=== PATIENT | male | born 1965 | race Native Hawaiian/Other Pacific Islander ===

== ENCOUNTER 2019-01-12 19:32 | Inpatient (IN) | payer BC ==
--- NOTE | 2019-01-12 19:36 | C.PDOC ---
History Of Present Illness 53 year old male is a code heart transfer from [facility]. Patient was admitted yesterday from chest pain, while on Telemetry floor yesterday patient started c/o chest pain. EKG done showed infralateral NC. Code heart was called and labs done at 13:00 showed positive Troponin. Patient received plavix, aspirin, IV heparin, betta blcokers. En route to the ED patient started c/o chest pain again, EMS gave another SL nitro with partial relief of symptoms. Time Seen by Provider: 01/12/19 19:35 Chief Complaint (Nursing): Chest Pain History Per: Patient, EMS History/Exam Limitations: no limitations Onset/Duration Of Symptoms: Days Current Symptoms Are (Timing): Still Present Pain Scale Rating Of: 4 Quality: "Pain" Nitro Therapy Administered: 1, Per EMS, Partial Relief Recent travel outside of the [place]: No Additional History Per: Patient Past Medical History Reviewed: Historical Data, Nursing Documentation, Vital Signs - Medical History PMH: No Chronic Diseases Denies: Chronic Kidney Disease Surgical History: No Surg Hx Family History: States: Unknown Family Hx - Social History Hx Alcohol Use: No Hx Substance Use: No Review Of Systems Constitutional: Negative for: Fever, Chills Cardiovascular: Positive for: Chest Pain. Negative for: Palpitations Respiratory: Negative for: Cough, Shortness of Breath Gastrointestinal: Negative for: Nausea, Vomiting, Abdominal Pain Skin: Negative for: Rash Neurological: Negative for: Weakness, Numbness, Headache, Dizziness Physical Exam - Physical Exam Appears: Non-toxic, No Acute Distress Skin: Warm, Dry Head: Normacephalic Eye(s): bilateral: Normal Inspection Neck: Supple Chest: Symmetrical Cardiovascular: Rhythm Regular Respiratory: No Rales, No Rhonchi, No Wheezing Gastrointestinal/Abdominal: Soft, No Tenderness, No Guarding, No Rebound Extremity: Bilateral: Atraumatic, Normal Color And Temperature, Normal ROM Neurological/Psych: Oriented x3, Normal Speech, Normal Cognition Gait: Unable To Assess ED Course And Treatment ECG: Interpreted By Me, Viewed By Me ECG Rhythm: Sinus Rhythm (74), ST/T Changes (lvh, poss early iwmi) Pulse Ox Interpretation: Normal Progress Note: Awaiting catheterization laboratory technician team and repeat EKG Disposition Discussed With : Mahamed Poole Doctor Will See Patient In The: ED Counseled Patient/Family Regarding: Studies Performed, Diagnosis - Disposition Disposition: HOSPITALIZED Disposition Time: 19:36 Condition: GUARDED Forms: [employer] ([place]) - Clinical Impression Clinical Impression: Chest pain, Myocardial infarction, inferior wall - Scribe Statement The provider has reviewed the documentation as recorded by the Scribe Armando Ellis All medical record entries made by the Scribe were at my direction and personally dictated by me. I have reviewed the chart and agree that the record accurately reflects my personal performance of the history, physical exam, medical decision making, and the department course for this patient. I have also personally directed, reviewed, and agree with the discharge instructions and disposition. Decision To Admit - Pt Status Changed To: Hospital Disposition Of: Inpatient - Admit Certification Admit to Inpatient:: After my assessment, the patient will require hospitalization for at least two midnights. This is because of the severity of symptoms shown, intensity of services needed, and/or the medical risk in this patient being treated as an outpatient. - InPatient: Physician Admission Certification: I certify that this patient requires 2 or more midnights of care for the following reason:: After my assessment, the patient will require hospitalization for at least two midnights. This is because of the severity of symptoms shown, intensity of services needed, and/or the medical risk in this patient being treated as an outpatient. - . Bed Request Type: ICU Admitting Physician: Mahamed Poole Patient Diagnosis: Chest pain, Myocardial infarction, inferior wall
[2019-01-12] MEDS ORDERED: Lidocaine 2% MPF (5 ml) Inj ONE ×2 (20:04→20:51)
[2019-01-12] MEDS ORDERED: Midazolam 2 MG/2 ML VIAL ONE ×2 (20:08→20:35)
[2019-01-12] MEDS ORDERED: Eptifibatide 20 mg/10mL Inj IVP ONE (20:19)
[2019-01-12] MEDS ORDERED: Eptifibatide 0.75 mg/ml 75 MG/100 ML BOTTLE IV ONE (20:30)
[2019-01-12] MEDS ORDERED: Nitroglycerin 50mg in D5W 50 MG/250 ML BOTTLE IV ONE (20:51)
[2019-01-12] MEDS ORDERED: Sodium Chloride 0.45% 1,000 ML IV SCH (21:15)
[2019-01-12] MEDS ORDERED: Nitroglycerin 50mg in D5W 50 MG/250 ML BOTTLE IV SCH (21:15)
[2019-01-12] MEDS ORDERED: Eptifibatide 0.75 mg/ml 75 MG/100 ML BOTTLE IV SCH (21:15)
--- NOTE | 2019-01-12 21:22 | CP.PCM.HP ---
History of Present Illness - History of Present Illness History of Present Illness: 53 year old male is a code heart transfer from [facility]. Patient was admitted yesterday from chest pain, while on Telemetry floor yesterday patient started c/o chest pain. EKG done showed infralateral VT. Code heart was called a nd labs done at 13:00 showed positive Troponin. Patient received plavix, aspirin, IV heparin, betta blcokers. En route to the ED patient started c/o chest pain again, EMS gave another SL nitro with partial relief of symptoms. Time Seen by Provider: 01/12/19 19:35 Chief Complaint (Nursing): Chest Pain History Per: Patient, EMS History/Exam Limitations: no limitations Onset/Duration Of Symptoms: Days Current Symptoms Are (Timing): Still Present Pain Scale Rating Of: 4 Quality: "Pain" Nitro Therapy Administered: 1, Per EMS, Partial Relief Recent travel outside of the [place]: No Additional History Per: Patient Past Medical History Reviewed: Historical Data, Nursing Documentation, Vital Signs - Medical History PMH: No Chronic Diseases Denies: Chronic Kidney Disease Surgical History: No Surg Hx Family History: States: Unknown Family Hx - Social History Hx Alcohol Use: No Hx Substance Use: No Review Of Systems Constitutional: Negative for: Fever, Chills Cardiovascular: Positive for: Chest Pain. Negative for: Palpitations Respiratory: Negative for: Cough, Shortness of Breath Gastrointestinal: Negative for: Nausea, Vomiting, Abdominal Pain Skin: Negative for: Rash Neurological: Negative for: Weakness, Numbness, Headache, Dizziness Physical Exam - Physical Exam Appears: Non-toxic, No Acute Distress Skin: Warm, Dry Head: Normacephalic Eye(s): bilateral: Normal Inspection Neck: Supple Chest: Symmetrical Cardiovascular: Rhythm Regular Respiratory: No Rales, No Rhonchi, No Wheezing Gastrointestinal/Abdominal: Soft, No Tenderness, No Guarding, No Rebound Extremity: Bilateral: Atraumatic, Normal Color And Temperature, Normal ROM Neurological/Psych: Oriented x3, Normal Speech, Normal Cognition Gait: Unable To Assess Assessment and Plan 53 M with hx of HTN and strong F hx of [place] transferred from [facility] for acute Inferior STEMI Patient was loaded with ASA 325, Plavix 600 and IV Heparin and brought to Head Neck Surgeon After informed consent Emergency cardiac cath and RCA intervention with MOMO performed Patient was hypertensive and started on IV Nitro Cath: 1. L Main: Patent 2. LAD/Diag: Proximal to mid 80-85% stenosis. Small D1 90% 3. L Cx: Patent 4. RCA: Dominant. Large PDA 99% occluded 5. LV: EF 40%, Inferior and apical hypokisis, EDP 20 Successful intervention of RCA/PDA with MOMO Staged PCI of LAD after 1 month Integrilin for 12 hrs IVF for 12 hrs D/C Heparin drip Lovenox 40sc, ASA 81, Plavix 75, Protonix 40 po daily Crestor 40QHS Check all the labs Bed rest till 1am (4hrs). can ambulate after ECHO, EKG Plan d/w Resident Present on Admission - Present on Admission Any Indicators Present on Admission: Yes Review of Systems - EENT Eyes: As Per HPI Past Patient History - Past Medical History & Family History Past Medical History?: Yes - Past Social History Smoking Status: Never Smoked - CARDIAC Hx Cardiac Disorders: No - PULMONARY Hx Respiratory Disorders: No - NEUROLOGICAL Hx Neurological Disorder: No - HEENT Hx HEENT Problems: No - RENAL Hx Chronic Kidney Disease: No - ENDOCRINE/METABOLIC Hx Endocrine Disorders: No - HEMATOLOGICAL/ONCOLOGICAL Hx Blood Disorders: No - INTEGUMENTARY Hx Dermatological Problems: No - MUSCULOSKELETAL/RHEUMATOLOGICAL Hx Musculoskeletal Disorders: No - GENITOURINARY/GYNECOLOGICAL Hx Genitourinary Disorders: No - PSYCHIATRIC Hx Substance Use: No Meds Allergies/Adverse Reactions: Allergies Allergy/AdvReac Type Severity Reaction Status Date / Time No Known Allergies Allergy Verified 01/12/19 05:35 Physical Exam - Head Exam Head Exam: ATRAUMATIC Results - Vital Signs Recent Vital Signs: Last Vital Signs Temp 97.5 F L 01/12/19 19:51 Pulse 75 01/12/19 19:35 Resp 16 01/12/19 19:35 BP 157/105 H 01/12/19 19:35 Pulse Ox 97 01/12/19 19:35 - Labs Result Diagrams: 01/13/19 06:23 01/13/19 06:24 Assessment & Plan - Date & Time Date: 01/12/19 Time: 19:45
--- NOTE | 2019-01-12 22:14 | CP.PCM.CON ---
History of Present Illness - History of Present Illness History of Present Illness: 53 M with hx of HTN and strong family hx of [place] transferred from [facility] for acute Inferior STEMI Patient was admitted at [facility] with chest pressure that woke him up at about 4:00am this morning.He 1st experienced chest pressure while exercising on Monday which resolved with rest.Similar episode on monday.chest pain was associated with nausea,dizziness and fatigue. At [facility] the Initial troponin and EKG were normal.Repeat troponin was elevated with inferolateral changes on EKG. Code heart initiated and Emergency cardiac cath done at [facility] Patient was hypertensive and started on IV Nitro Cardiac Cath revealed: 1. L Main: Patent 2. LAD/Diag: Proximal to mid 80-85% stenosis. Small D1 90% 3. L Cx: Patent 4. RCA: Dominant. Large PDA 99% occluded 5. LV: EF 40%, Inferior and apical hypokisis, EDP 20 Successful intervention of RCA/PDA with MOMO Staged PCI of LAD after 1 month patient denies chest pressure but c/o mild left chest soreness .no dizziness,nausea Review of Systems - Constitutional Constitutional: absent: Anorexia, Headache, Weakness - EENT Eyes: absent: Blurred Vision Ears: absent: Ear Pain, Dizziness Nose/Mouth/Throat: absent: Hoarsness, Sore Throat - Cardiovascular Cardiovascular: Other (c/o left sided soreness). absent: Dyspnea, Palpitations, Pedal Edema - Respiratory Respiratory: absent: Cough, Dyspnea, Hemoptysis - Gastrointestinal Gastrointestinal: absent: Abdominal Pain, Nausea, Vomiting - Genitourinary Genitourinary: absent: Dysuria - Endocrine Endocrine: absent: Fatigue - Hematologic/Lymphatic Hematologic: absent: Easy Bleeding Past Patient History - Past Social History Smoking Status: Never Smoked Alcohol: Social Drugs: Denies Home Situation {Lives}: With Family - CARDIAC Hx Cardiac Disorders: Yes Hx Hypercholesterolemia: Yes (borderline abnormal not on meds) Hx Hypertension: Yes (borderline elevated BP not on meds) - PULMONARY Hx Respiratory Disorders: No - NEUROLOGICAL Hx Neurological Disorder: No - HEENT Hx HEENT Problems: No - RENAL Hx Chronic Kidney Disease: No - ENDOCRINE/METABOLIC Hx Endocrine Disorders: No - HEMATOLOGICAL/ONCOLOGICAL Hx Blood Disorders: No - INTEGUMENTARY Hx Dermatological Problems: No - MUSCULOSKELETAL/RHEUMATOLOGICAL Hx Musculoskeletal Disorders: No - GENITOURINARY/GYNECOLOGICAL Hx Genitourinary Disorders: No - PSYCHIATRIC Hx Substance Use: No Meds Allergies/Adverse Reactions: Allergies Allergy/AdvReac Type Severity Reaction Status Date / Time No Known Allergies Allergy Verified 01/12/19 05:35 - Medications Medications: Current Medications Aspirin (Aspirin Chewable) 81 mg PO DAILY [facility] Clopidogrel Bisulfate (Plavix) 75 mg PO DAILY [facility] Enoxaparin Sodium (Lovenox) 40 mg SC DAILY [facility] Sodium Chloride (Sodium Chloride 0.45%) 1,000 mls @ 70 mls/hr IV .[id number] [facility] Last Admin: 01/12/19 21:51 Dose: 70 mls/hr Eptifibatide (Integrilin) 75 mg in 100 mls @ 14.5 mls/hr IV .[id number] [facility] Stop: 01/13/19 09:00 Last Admin: 01/12/19 21:00 Dose: 14.5 mls/hr Nitroglycerin/Dextrose (Nitroglycerin 50 Mg/250 Ml D5w) 50 mg in 250 mls @ 9 mls/hr IV .Q24H [facility]; Protocol Last Titration: 01/12/19 21:30 Dose: 20 mcg/min, 6 mls/hr Losartan Potassium (Cozaar) 25 mg PO DAILY [facility] Metoprolol Tartrate (Lopressor) 25 mg PO BID [facility] Pantoprazole Sodium (Protonix Ec Tab) 40 mg PO DAILY [facility] Rosuvastatin Calcium (Crestor) 40 mg PO HS [facility] Last Admin: 01/12/19 21:52 Dose: 40 mg Physical Exam - Constitutional Appears: Non-toxic, No Acute Distress - Head Exam Head Exam: ATRAUMATIC, NORMAL INSPECTION, NORMOCEPHALIC - Eye Exam Eye Exam: EOMI. absent: Scleral icterus Pupil Exam: NORMAL ACCOMODATION, PERRL - ENT Exam ENT Exam: Mucous Membranes Moist - Neck Exam Neck exam: Positive for: Normal Inspection - Respiratory Exam Respiratory Exam: Clear to Auscultation Bilateral. absent: Accessory Muscle Use - Cardiovascular Exam Cardiovascular Exam: REGULAR RHYTHM. absent: JVD - GI/Abdominal Exam GI & Abdominal Exam: Normal Bowel Sounds, Soft. absent: Tenderness - Extremities Exam Extremities exam: Positive for: normal inspection, pedal pulses present. Negative for: calf tenderness, pedal edema - Neurological Exam Neurological exam: Alert, Oriented x3 - Psychiatric Exam Psychiatric exam: Normal Affect - Skin Skin Exam: Normal Color, Warm Results - Vital Signs Recent Vital Signs: Last Vital Signs Temp 98 F 01/12/19 21:19 Pulse 89 01/12/19 21:19 Resp 21 01/12/19 21:19 BP 136/94 H 01/12/19 21:19 Pulse Ox 95 01/12/19 21:09 - Labs Labs: labs from [facility] noted - EKG Data EKG Interpreted by: Myself - Imaging and Cardiology Chest x-ray Status: Report reviewed by me (report from [facility] noted) Assessment & Plan - Assessment and Plan (Free Text) Assessment: Acute Inferior STEMI/HTN/ hyperlipidemia S/P cardiac cath and RCA intervention with MOMO performed On IV Nitro for HTN Integrilin for 12 hrs,IVF for 12 hrs Lovenox 40sc, ASA 81, Plavix 75, Protonix 40 po daily Crestor 40QHS ECHO, EKG Cath: 1. L Main: Patent 2. LAD/Diag: Proximal to mid 80-85% stenosis. Small D1 90% 3. L Cx: Patent 4. RCA: Dominant. Large PDA 99% occluded 5. LV: EF 40%, Inferior and apical hypokinesis, EDP 20 Staged PCI of LAD after 1 month
[2019-01-12 23:09] LABS: BASO % 0.2 % (0.0-2.0); EOS % 0.1 % (0.0-4.0); HEMOGLOBIN 15.2 g/dL (12.0-18.0); LYMPH # 1.2 K/uL (1.0-4.3); LYMPH % 10.3 % (20.0-40.0); MEAN CELL VOLUME 93.5 fL (80.0-94.0); MEAN CORPUSCULAR HEMOGLOBIN 30.6 pg (27.0-31.0); MEAN CORPUSCULAR HGB CONC 32.7 g/dL (33.0-37.0); MEAN PLATELET VOLUME 10.3 fL (7.2-11.7); MONO # 0.3 K/uL (0.0-0.8); MONO % 2.7 % (0.0-10.0); NEUT # 9.9 K/uL (1.8-7.0); NEUT % 86.7 % (50.0-75.0); RBC 4.97 Mil/uL (4.40-5.90); RED CELL DISTRIBUTION WIDTH 12.9 % (11.5-14.5); WHITE BLOOD COUNT 11.5 K/uL (4.8-10.8)
[2019-01-12 23:19] LABS: ALB/GLOB RATIO 1.3 (1.0-2.1); ALBUMIN 4.2 g/dL (3.5-5.0); ALT/SGPT 50 U/L (21-72); AST/SGOT 175 U/L (17-59); BLOOD UREA NITROGEN 13 mg/dL (9-20); CALCIUM 8.8 mg/dl (8.6-10.4); GFR NON-AFRICAN AMERICAN > 60; HDL CHOLESTEROL 45 mg/dL (30-70)
[2019-01-12 23:30] LABS: LDL CHOLESTEROL 124 mg/dL (0-129)
[2019-01-12 23:35] LABS: CK-MB 72.5 ng/mL (0.0-3.38)
[2019-01-13] MEDS ORDERED: Eptifibatide 0.75 mg/ml 75 MG/100 ML BOTTLE IV ONE (03:00)
[2019-01-13 03:28] VITALS: BMI 28.4
[2019-01-13 06:38] LABS: BASO % 0.4 % (0.0-2.0); EOS % 0.4 % (0.0-4.0); HEMOGLOBIN 15.2 g/dL (12.0-18.0); LYMPH # 2.2 K/uL (1.0-4.3); LYMPH % 23.6 % (20.0-40.0); MEAN CELL VOLUME 93.1 fL (80.0-94.0); MEAN CORPUSCULAR HEMOGLOBIN 30.8 pg (27.0-31.0); MEAN CORPUSCULAR HGB CONC 33.1 g/dL (33.0-37.0); MEAN PLATELET VOLUME 9.8 fL (7.2-11.7); MONO # 0.7 K/uL (0.0-0.8); MONO % 7.4 % (0.0-10.0); NEUT # 6.3 K/uL (1.8-7.0); NEUT % 68.2 % (50.0-75.0); RBC 4.95 Mil/uL (4.40-5.90); RED CELL DISTRIBUTION WIDTH 12.8 % (11.5-14.5); WHITE BLOOD COUNT 9.3 K/uL (4.8-10.8)
[2019-01-13 06:47] LABS: ALB/GLOB RATIO 1.4 (1.0-2.1); ALBUMIN 4.1 g/dL (3.5-5.0); ALT/SGPT 54 U/L (21-72); AST/SGOT 229 U/L (17-59); BLOOD UREA NITROGEN 14 mg/dL (9-20); CALCIUM 8.9 mg/dl (8.6-10.4); GFR NON-AFRICAN AMERICAN > 60
[2019-01-13 06:53] LABS: CK-MB 94.2 ng/mL (0.0-3.38)
[2019-01-13] MEDS: Pantoprazole 40 mg EC Tab PO SCH (09:56)
[2019-01-13] MEDS: Enoxaparin 40 mg Syringe SC SCH (09:57)
--- NOTE | 2019-01-13 10:20 | CP.CCUPN ---
CCU Subjective - Physician Review Events Since Last Encounter (Free Text): 01/13/19 10:20 Chief complaint: Chest pain HPI: 53-year-old male with a history of hypertension, history of [place] family history family history of heart disease transferred from [facility] with acute inferior and ST elevation [place]. Patient was initially admitted in the [facility], but he started experiencing chest pressure and associated with nausea dizziness and fatigue, and there was an EKG changes. Code heart was called and, patient was transferred to [facility]. Patient underwent angiogram, and a stent placement to RCA noted to be Left main was patent LAD den diagonal 80% stenosis, small diagonal 190% a Circumflex patent LVEF 40% noted. Some achiness is noted. And the patient had a successful RCA and PDA intervention with a drug-eluting stent. Patient may need LAD stent after 1 month. Past medical history hypertension Allergies no known drug allergy Personal history: Patient is non-smoker socially drinks alcohol. Family history of heart disease noted. High cholesterol noted Review of systems: Currently patient is feeling well, no chest pain no shortness of breath noted. Denies any nausea no vomiting noted. On examination: Vital signs are stable. Chest good air entry Heart sounds are regular Nontender abdomen. Patient is currently receiving Integrilin drip. Other medications including aspirin, Plavix, Lovenox, losartan, metoprolol, Crestor Assessment and recommendation: 53-year-old male with a history of hypertension and high cholesterol now admitted with ST elevation [place], status post stent. Patient will continue current treatment. Medications reviewed Evaluation by the cardiology follow-up. Echocardiogram Out of bed to chair and will follow up the patient CCU Objective - Vital Signs / Intake & Output Vital Signs (Last 4 hours): Vital Signs Temp Pulse Resp BP Pulse Ox 01/13/19 09:53 134/86 01/13/19 09:07 89 18 154/93 H 01/13/19 09:00 97 H 21 97 01/13/19 08:08 97.8 F 22 L 20 153/99 H 97 01/13/19 08:07 77 18 153/99 H 96 01/13/19 08:00 84 18 96 01/13/19 07:07 137/92 H 01/13/19 07:00 84 20 96 Intake and Output (Last 8hrs): Intake & Output 01/12/19 01/13/19 01/13/19 21:59 06:59 14:59 Intake Total 154.5 Output Total Balance 154.5 Weight Intake: IV Intake, IV Amount 154.5 Left Distal Port Antecubital Left Proximal Port 14.5 Antecubital Right Wrist 140 Oral Output: Urine Urine, Voided Other: # Voids Urine, Voided 0 # Bowel Movements 0 - Medications Active Medications: Active Medications Generic Name Dose Route Start Last Admin Trade Name Freq PRN Reason Stop Dose Admin Aspirin 81 mg 01/13/19 10:00 01/13/19 09:57 Aspirin Chewable PO 81 mg DAILY ALFRED Administration Clopidogrel Bisulfate 75 mg 01/13/19 10:00 01/13/19 09:56 Plavix PO 75 mg DAILY ALFRED Administration Enoxaparin Sodium 40 mg 01/13/19 10:00 01/13/19 09:57 Lovenox SC 40 mg DAILY ALFRED Administration Sodium Chloride 1,000 mls @ 70 mls/hr 01/12/19 21:15 01/12/19 21:51 Sodium Chloride 0.45% IV 70 mls/hr .[id number] ALFRED Administration Nitroglycerin/Dextrose 50 mg in 250 mls @ 9 mls/hr 01/12/19 21:15 01/12/19 21:30 Nitroglycerin 50 Mg/250 Ml D5w IV 20 mcg/min .Q24H ALFRED 6 mls/hr Titration Protocol 30 MCG/MIN Losartan Potassium 25 mg 01/13/19 10:00 01/13/19 10:05 Cozaar PO 25 mg DAILY ALFRED Administration Metoprolol Tartrate 25 mg 01/13/19 10:00 01/13/19 09:53 Lopressor PO 25 mg BID ALFRED Administration Pantoprazole Sodium 40 mg 01/13/19 10:00 01/13/19 09:56 Protonix Ec Tab PO 40 mg DAILY ALFRED Administration Rosuvastatin Calcium 40 mg 01/12/19 22:00 01/12/19 21:52 Crestor PO 40 mg HS ALFRED Administration - Patient Studies Lab Studies: Lab Studies 01/13/19 01/13/19 01/12/19 Range/Units 06:24 06:23 23:03 WBC 9.3 (4.8-10.8) K/uL RBC 4.95 (4.40-5.90) Mil/uL Hgb 15.2 (12.0-18.0) g/dL Hct 46.0 (35.0-51.0) % MCV 93.1 (80.0-94.0) fL MCH 30.8 (27.0-31.0) pg MCHC 33.1 (33.0-37.0) g/dL RDW 12.8 (11.5-14.5) % Plt Count 222 (130-400) K/uL MPV 9.8 (7.2-11.7) fL Neut % (Auto) 68.2 (50.0-75.0) % Lymph % (Auto) 23.6 (20.0-40.0) % [place] % (Auto) 7.4 (0.0-10.0) % Eos % (Auto) 0.4 (0.0-4.0) % Baso % (Auto) 0.4 (0.0-2.0) % Neut # (Auto) 6.3 (1.8-7.0) K/uL Lymph # (Auto) 2.2 (1.0-4.3) K/uL Glad[place] # (Auto) 0.7 (0.0-0.8) K/uL Eos # (Auto) 0.0 (0.0-0.7) K/uL Baso # (Auto) 0.0 (0.0-0.2) K/uL Sodium 132 (132-148) mmol/L Potassium 3.9 (3.6-5.2) mmol/L Chloride 100 (98-107) mmol/L Carbon Dioxide 24 (22-30) mmol/L Anion Gap 12 (10-20) BUN 14 (9-20) mg/dL Creatinine 0.8 (0.8-1.5) mg/dL Est GFR ( Amer) > 60 Est GFR (Non-Af Amer) > 60 Random Glucose 107 D (75-110) mg/dL Hemoglobin A1c 5.8 (4.2-6.5) % Calcium 8.9 (8.6-10.4) mg/dl Phosphorus 3.9 (2.5-4.5) mg/dL Magnesium 1.6 (1.6-2.3) mg/dL Total Bilirubin 0.7 (0.2-1.3) mg/dL AST 229 H D (17-59) U/L ALT 54 (21-72) U/L Alkaline Phosphatase 78 (38-126) U/L Total Creatine Kinase 1402 H (55-170) U/L CK-MB (Mass) 94.2 H (0.0-3.38) ng/mL Troponin I 48.2000 H* (0.00-0.120) ng/mL Total Protein 7.2 (6.3-8.3) g/dL Albumin 4.1 (3.5-5.0) g/dL Globulin 3.0 (2.2-3.9) gm/dL Albumin/Globulin Ratio 1.4 (1.0-2.1) Triglycerides (0-149) mg/dL Cholesterol (0-199) mg/dL LDL Cholesterol Direct (0-129) mg/dL HDL Cholesterol (30-70) mg/dL 01/12/19 01/12/19 Range/Units 23:03 23:03 WBC 11.5 H (4.8-10.8) K/uL RBC 4.97 (4.40-5.90) Mil/uL Hgb 15.2 (12.0-18.0) g/dL Hct 46.5 (35.0-51.0) % MCV 93.5 (80.0-94.0) fL MCH 30.6 (27.0-31.0) pg MCHC 32.7 L (33.0-37.0) g/dL RDW 12.9 (11.5-14.5) % Plt Count 211 (130-400) K/uL MPV 10.3 (7.2-11.7) fL Neut % (Auto) 86.7 H (50.0-75.0) % Lymph % (Auto) 10.3 L (20.0-40.0) % Gladwin % (Auto) 2.7 (0.0-10.0) % Eos % (Auto) 0.1 (0.0-4.0) % Baso % (Auto) 0.2 (0.0-2.0) % Neut # (Auto) 9.9 H (1.8-7.0) K/uL Lymph # (Auto) 1.2 (1.0-4.3) K/uL Gladwin # (Auto) 0.3 (0.0-0.8) K/uL Eos # (Auto) 0.0 (0.0-0.7) K/uL Baso # (Auto) 0.0 (0.0-0.2) K/uL Sodium 134 (132-148) mmol/L Potassium 4.1 (3.6-5.2) mmol/L Chloride 100 (98-107) mmol/L Carbon Dioxide 22 (22-30) mmol/L Anion Gap 15 (10-20) BUN 13 (9-20) mg/dL Creatinine 0.8 (0.8-1.5) mg/dL Est GFR ( Amer) > 60 Est GFR (Non-Af Amer) > 60 Random Glucose 147 H (75-110) mg/dL Hemoglobin A1c (4.2-6.5) % Calcium 8.8 (8.6-10.4) mg/dl Phosphorus (2.5-4.5) mg/dL Magnesium (1.6-2.3) mg/dL Total Bilirubin 0.8 (0.2-1.3) mg/dL AST 175 H (17-59) U/L ALT 50 (21-72) U/L Alkaline Phosphatase 87 (38-126) U/L Total Creatine Kinase 1115 H (55-170) U/L CK-MB (Mass) 72.5 H (0.0-3.38) ng/mL Troponin I 17.9000 H* (0.00-0.120) ng/mL Total Protein 7.5 (6.3-8.3) g/dL Albumin 4.2 (3.5-5.0) g/dL Globulin 3.3 (2.2-3.9) gm/dL Albumin/Globulin Ratio 1.3 (1.0-2.1) Triglycerides 89 (0-149) mg/dL Cholesterol 183 (0-199) mg/dL LDL Cholesterol Direct 124 (0-129) mg/dL HDL Cholesterol 45 (30-70) mg/dL Laboratory Results - last 24 hr 01/12/19 01/12/19 01/12/19 23:03 23:03 23:03 WBC 11.5 H RBC 4.97 Hgb 15.2 Hct 46.5 MCV 93.5 MCH 30.6 MCHC 32.7 L RDW 12.9 Plt Count 211 MPV 10.3 Neut % (Auto) 86.7 H Lymph % (Auto) 10.3 L Glad[place] % (Auto) 2.7 Eos % (Auto) 0.1 Baso % (Auto) 0.2 Neut # (Auto) 9.9 H Lymph # (Auto) 1.2 Glad[place] # (Auto) 0.3 Eos # (Auto) 0.0 Baso # (Auto) 0.0 Sodium 134 Potassium 4.1 Chloride 100 Carbon Dioxide 22 Anion Gap 15 BUN 13 Creatinine 0.8 Est GFR ( Amer) > 60 Est GFR (Non-Af Amer) > 60 Random Glucose 147 H Hemoglobin A1c 5.8 Calcium 8.8 Phosphorus Magnesium Total Bilirubin 0.8 AST 175 H ALT 50 Alkaline Phosphatase 87 Total Creatine Kinase 1115 H CK-MB (Mass) 72.5 H Troponin I 17.9000 H* Total Protein 7.5 Albumin 4.2 Globulin 3.3 Albumin/Globulin Ratio 1.3 Triglycerides 89 Cholesterol 183 LDL Cholesterol Direct 124 HDL Cholesterol 45 01/13/19 01/13/19 06:23 06:24 WBC 9.3 RBC 4.95 Hgb 15.2 Hct 46.0 MCV 93.1 MCH 30.8 MCHC 33.1 RDW 12.8 Plt Count 222 MPV 9.8 Neut % (Auto) 68.2 Lymph % (Auto) 23.6 Gladwin % (Auto) 7.4 Eos % (Auto) 0.4 Baso % (Auto) 0.4 Neut # (Auto) 6.3 Lymph # (Auto) 2.2 [place] # (Auto) 0.7 Eos # (Auto) 0.0 Baso # (Auto) 0.0 Sodium 132 Potassium 3.9 Chloride 100 Carbon Dioxide 24 Anion Gap 12 BUN 14 Creatinine 0.8 Est GFR ( Amer) > 60 Est GFR (Non-Af Amer) > 60 Random Glucose 107 D Hemoglobin A1c Calcium 8.9 Phosphorus 3.9 Magnesium 1.6 Total Bilirubin 0.7 AST 229 H D ALT 54 Alkaline Phosphatase 78 Total Creatine Kinase 1402 H CK-MB (Mass) 94.2 H Troponin I 48.2000 H* Total Protein 7.2 Albumin 4.1 Globulin 3.0 Albumin/Globulin Ratio 1.4 Triglycerides Cholesterol LDL Cholesterol Direct HDL Cholesterol EKG/Cardiology Studies: Cardiology / EKG Studies 01/12/19 19:39 EKG [ELECTROCARDIOGRAM] Stat Comment: Mode Of Transportation: BED Reason For Exam: code heart bed 4 01/12/19 21:22 ELECTROCARDIOGRAM Stat Comment: Mode Of Transportation: Reason For Exam: s/p cardiac cath 01/13/19 07:00 ELECTROCARDIOGRAM DAILY Comment: Mode Of Transportation: Reason For Exam: s/p cardiac cath 01/14/19 07:00 ELECTROCARDIOGRAM DAILY Comment: Mode Of Transportation: Reason For Exam: s/p cardiac cath Critical Care Progress Note - Nutrition Nutrition: Nutrition Category Date Time Status Heart Healthy Diet [DIET] Diets 01/12/19 Dinner Active
--- NOTE | 2019-01-13 14:57 | RAD ---
Date of service: 01/13/2019 PROCEDURE: CHEST RADIOGRAPH, 1 VIEW HISTORY: post cath COMPARISON: None available. FINDINGS: LUNGS: Mild pulmonary vascular congestion and prominent lung markings. No evidence of focal consolidation. PLEURA: No pneumothorax or pleural fluid seen. CARDIOVASCULAR: No aortic atherosclerotic calcification present. Normal. OSSEOUS STRUCTURES: No significant abnormalities. VISUALIZED UPPER ABDOMEN: Normal. OTHER FINDINGS: None. IMPRESSION: Mild pulmonary vascular congestion.
--- NOTE | 2019-01-13 20:05 | CP.PCM.PN ---
Subjective - Date & Time of Evaluation Date of Evaluation: 01/13/19 Time of Evaluation: 12:30 - Subjective Subjective: Patient seen and evaluated in ICU Family at bedside Review of Systems - Constitutional Constitutional: absent: Anorexia, Headache, Weakness - EENT Eyes: absent: Blurred Vision Ears: absent: Ear Pain, Dizziness Nose/Mouth/Throat: absent: Hoarsness, Sore Throat - Cardiovascular Cardiovascular: Other (c/o left sided soreness). absent: Dyspnea, Palpitations, Pedal Edema - Respiratory Respiratory: absent: Cough, Dyspnea, Hemoptysis - Gastrointestinal Gastrointestinal: absent: Abdominal Pain, Nausea, Vomiting - Genitourinary Genitourinary: absent: Dysuria - Endocrine Endocrine: absent: Fatigue - Hematologic/Lymphatic Hematologic: absent: Easy Bleeding Physical Exam - Constitutional Appears: Non-toxic, No Acute Distress - Head Exam Head Exam: ATRAUMATIC, NORMAL INSPECTION, NORMOCEPHALIC - Eye Exam Eye Exam: EOMI. absent: Scleral icterus Pupil Exam: NORMAL ACCOMODATION, PERRL - ENT Exam ENT Exam: Mucous Membranes Moist - Neck Exam Neck exam: Positive for: Normal Inspection - Respiratory Exam Respiratory Exam: Clear to Auscultation Bilateral. absent: Accessory Muscle Use - Cardiovascular Exam Cardiovascular Exam: REGULAR RHYTHM. absent: JVD - GI/Abdominal Exam GI & Abdominal Exam: Normal Bowel Sounds, Soft. absent: Tenderness - Extremities Exam Extremities exam: Positive for: normal inspection, pedal pulses present. Negative for: calf tenderness, pedal edema - Neurological Exam Neurological exam: Alert, Oriented x3 - Psychiatric Exam Psychiatric exam: Normal Affect - Skin Skin Exam: Normal Color, Warm Assessment & Plan - Assessment and Plan (Free Text) Assessment: Acute Inferior STEMI/HTN/ hyperlipidemia S/P cardiac cath and RCA intervention with MOMO performed HTN on B blockers Lovenox 40sc, ASA 81, Brilinta, Protonix 40 po daily Crestor 40QHS ECHO, EKG Cath: 1. L Main: Patent 2. LAD/Diag: Proximal to mid 80-85% stenosis. Small D1 90% 3. L Cx: Patent 4. RCA: Dominant. Large PDA 99% occluded 5. LV: EF 40%, Inferior and apical hypokinesis, EDP 20 Staged PCI of LAD after 1 month Change service to Dr. Gallardo Objective - Vital Signs/Intake and Output Vital Signs (last 24 hours): Temp Pulse Resp BP Pulse Ox 97.9 F 89 27 H 121/87 93 L 01/13/19 16:00 01/13/19 19:07 01/13/19 19:07 01/13/19 19:07 01/13/19 18:18 Intake and Output: 01/13/19 01/14/19 18:59 06:59 Intake Total 2064.5 0 Output Total 2120 0 Balance -55.5 0 - Medications Medications: Current Medications Aspirin (Aspirin Chewable) 81 mg PO DAILY [facility] Last Admin: 01/13/19 09:57 Dose: 81 mg Enoxaparin Sodium (Lovenox) 40 mg SC DAILY [facility] Last Admin: 01/13/19 09:57 Dose: 40 mg Losartan Potassium (Cozaar) 25 mg PO DAILY [facility] Last Admin: 01/13/19 10:05 Dose: 25 mg Metoprolol Tartrate (Lopressor) 25 mg PO BID [facility] Last Admin: 01/13/19 18:19 Dose: 25 mg Pantoprazole Sodium (Protonix Ec Tab) 40 mg PO DAILY [facility] Last Admin: 01/13/19 09:56 Dose: 40 mg Rosuvastatin Calcium (Crestor) 40 mg PO HS [facility] Last Admin: 01/12/19 21:52 Dose: 40 mg Ticagrelor (Brilinta) 90 mg PO BID [facility] - Labs Labs: 01/13/19 06:23 01/13/19 06:24
[2019-01-13] MEDS ORDERED: Vitamins A & D Oint UD Foilpak TOP ONE (21:32)
--- NOTE | 2019-01-14 02:31 | CARDCATH ---
PROCEDURE DATE: 01/12/2019 CLINICAL INDICATIONS: 1. Acute inferior wall ST elevation myocardial infarction. 2. Chest pain. 3. Uncontrolled hypertension. 4. Hyperlipidemia. PROCEDURES: 1. Left heart catheterization. 2. Coronary angiogram. 3. Right coronary artery balloon angioplasty and drug-eluting stent placement. REFERRING PHYSICIAN: Terry Curry MD, Cardiology from [place]. PERFORMING PHYSICIAN: Mahamed Poole MD BRIEF CLINICAL HISTORY: Nathaly Jones is a 53-year-old with history of hypertension and hyperlipidemia presented to [facility] with chest pain. The patient was admitted to telemetry. However, today on the day of the procedure, the patient had a severe chest pain leading to acute inferior wall ST elevation myocardial infarction. The patient was emergently transferred to [facility] for urgent cath and coronary intervention. DESCRIPTION OF PROCEDURE: After an informed consent, the patient was prepped and draped in the usual sterile fashion. The patient was preloaded with aspirin, Plavix, and IV heparin. ACT was maintained about 250. A JL4 6-Anguillan diagnostic catheter engaged into left main coronary artery. Contrast injected and left coronary angiogram was done. Left coronary angiogram revealed proximal to mid LAD 80% to 85% stenotic lesion. Distal LAD has a 50% lesion. Small diagonal has a 90% stenosis. Left circumflex and obtuse marginal branches are patent. The catheter was exchanged to JR-4 6-Anguillan guided catheter. The catheter engaged into right coronary artery. Contrast injected and right coronary angiogram was done. Right coronary angiogram revealed proximal, mid, and distal right coronary artery is patent. However, large PDA has a 99% stenosis. This was the culprit lesion. The patient was given a bolus of Integrilin and started on Integrilin drip. Multiple wires attempted to cross the PDA lesion. However, the lesion was hard, presented like a subacute thrombus. Finally, the Whisper wire crossed the lesion. The lesion was pre-dilated using 2.0 x 15 compliant balloon, that was splinted with 2.5 x 18 Resolute integrity drug-eluting stent. The stent was post-dilated using 2.75 x 15 non-compliant balloon. Excellent final angiographic results and brisk JAMIE-3 flow noted in the entire right coronary artery. LV ejection fraction is approximately ____ progressed. LV angiogram was done. LVEDP was 22. No gradient across the aortic valve. LV angiogram revealed EF of 40%. Inferior and apical hypokinesis. The patient tolerated the procedure well. Radiological supervision and radiological interpretation of the coronary imaging was done. At the end of the procedure, the right groin hemostasis accomplished using Perclose suture device. Status post acute inferior wall myocardial infarction. Successful right coronary artery intervention with drug-eluting stent. The patient will be transferred to Intensive Care Unit for further management. The patient has a proximal to mid LAD 80% to 85% stenosis. The lesion will be intervened after two to four weeks. Mahamed Poole MD
[2019-01-14 06:11] LABS: BASO # 0.1 K/uL (0.0-0.2); BASO % 1.1 % (0.0-2.0); EOS # 0.1 K/uL (0.0-0.7); EOS % 0.9 % (0.0-4.0); HEMOGLOBIN 15.7 g/dL (12.0-18.0); LYMPH # 2.2 K/uL (1.0-4.3); LYMPH % 20.5 % (20.0-40.0); MEAN CELL VOLUME 92.3 fL (80.0-94.0); MEAN CORPUSCULAR HEMOGLOBIN 30.7 pg (27.0-31.0); MEAN CORPUSCULAR HGB CONC 33.2 g/dL (33.0-37.0); MEAN PLATELET VOLUME 9.4 fL (7.2-11.7); MONO # 0.8 K/uL (0.0-0.8); MONO % 7.3 % (0.0-10.0); NEUT # 7.4 K/uL (1.8-7.0); NEUT % 70.2 % (50.0-75.0); NRBC % 0.1 % (0.0-2.0); RBC 5.12 Mil/uL (4.40-5.90); RED CELL DISTRIBUTION WIDTH 12.8 % (11.5-14.5); WHITE BLOOD COUNT 10.5 K/uL (4.8-10.8)
[2019-01-14 06:32] LABS: ALB/GLOB RATIO 1.4 (1.0-2.1); ALBUMIN 4.2 g/dL (3.5-5.0); ALT/SGPT 43 U/L (21-72); AST/SGOT 98 U/L (17-59); BLOOD UREA NITROGEN 21 mg/dL (9-20); CALCIUM 9.1 mg/dl (8.6-10.4); GFR NON-AFRICAN AMERICAN > 60
[2019-01-14 06:48] LABS: CK-MB 15.6 ng/mL (0.0-3.38)
--- NOTE | 2019-01-14 08:47 | CP.CCUPN ---
CCU Subjective - Physician Review Subjective (Free Text): 01/14/19 10:27 ICU Progress Note for Dr. Gallardo Pt seen and examined at bedside this am. Denies any acute complaints, states he feels well. Reports no pain at site of catheter insertion. S/p cath and RCA intervention with MOMO with Dr. Poole post-procedure day #2 on 01/12/19. Denies chest pain, sob, fever, chills, n/v/d/c, abd pain, urinary complaints, or other symptoms. Tolerating PO diet well. Has been able to ambulate from bed to chair and also around ICU unit without concerns. Pending cardiac echo today. CCU Objective - Vital Signs / Intake & Output Vital Signs (Last 4 hours): Vital Signs Temp Pulse Resp BP Pulse Ox 01/14/19 08:20 97 H 17 127/89 93 L 01/14/19 08:00 98.1 F 01/14/19 07:49 85 20 126/85 94 L 01/14/19 06:54 88 18 118/80 94 L 01/14/19 06:00 94 H 21 94 L 01/14/19 05:48 103/76 01/14/19 05:00 78 22 96 01/14/19 04:48 95/60 L Intake and Output (Last 8hrs): Intake & Output 01/13/19 01/14/19 01/14/19 22:59 06:59 14:59 Intake Total 290 50 0 Output Total 840 1000 Balance -550 -950 0 Weight 185 lb Intake: Intake, IV Amount 0 Left Proximal Port 0 Antecubital Right Wrist 0 Oral 290 50 0 Output: Urine 840 1000 Urine, Voided 840 1000 Other: # Voids Urine, Voided 0 # Bowel Movements 1 - Physical Exam Head: Positive for: Atraumatic, Normocephalic Pupils: Positive for: PERRL Extroacular Muscles: Positive for: EOMI Conjunctiva: Positive for: Normal Mouth: Positive for: Moist Mucous Membranes Neck: Positive for: Normal Range of Motion, Trachea Midline. Negative for: JVD, Lymphadenopathy Respiratory/Chest: Positive for: Clear to Auscultation, Good Air Exchange. Negative for: Respiratory Distress, Accessory Muscle Use, Wheezes, Rales, Rhonchi Cardiovascular: Positive for: Normal S1, S2, Tachycardic. Negative for: Murmurs, Rub, Gallop Abdomen: Positive for: Normal Bowel Sounds. Negative for: Tenderness, Distention, Mass/Organomegaly Upper Extremity: Positive for: Normal Inspection, Normal ROM, NORMAL PULSES, Neurovascularly Intact, Capillary Refill < 2s. Negative for: Cyanosis, Edema Lower Extremity: Positive for: Normal Inspection, NORMAL PULSES, Normal ROM, Neurovascularly Intact, Capillary Refill < 2 s. Negative for: Edema, CALF TENDERNESS, Cyanosis Neurological: Positive for: GCS=15, CN II-XII Intact, Speech Normal, Motor Func Grossly Intact, Gait Normal Skin: Positive for: Warm, Dry, Normal Color. Negative for: Rashes Psychiatric: Positive for: Alert, Oriented x 3, Normal Insight, Normal Concentration - Medications Active Medications: Active Medications Generic Name Dose Route Start Last Admin Trade Name Freq PRN Reason Stop Dose Admin Aspirin 81 mg 01/13/19 10:00 01/13/19 09:57 Aspirin Chewable PO 81 mg DAILY [facility] Administration Docusate Sodium 100 mg 01/14/19 10:00 Colace PO BID [facility] Enoxaparin Sodium 40 mg 01/13/19 10:00 01/13/19 09:57 Lovenox SC 40 mg DAILY [facility] Administration Losartan Potassium 25 mg 01/13/19 10:00 01/13/19 10:05 Cozaar PO 25 mg DAILY [facility] Administration Metoprolol Tartrate 25 mg 01/13/19 10:00 01/13/19 18:19 Lopressor PO 25 mg BID [facility] Administration Pantoprazole Sodium 40 mg 01/13/19 10:00 01/13/19 09:56 Protonix Ec Tab PO 40 mg DAILY [facility] Administration Rosuvastatin Calcium 40 mg 01/12/19 22:00 01/13/19 21:23 Crestor PO 40 mg HS [facility] Administration Ticagrelor 90 mg 01/14/19 10:00 Brilinta PO BID [facility] - Patient Studies Lab Studies: Lab Studies 01/14/19 01/14/19 01/12/19 Range/Units 06:07 06:07 23:03 WBC 10.5 (4.8-10.8) K/uL RBC 5.12 (4.40-5.90) Mil/uL Hgb 15.7 (12.0-18.0) g/dL Hct 47.3 (35.0-51.0) % MCV 92.3 (80.0-94.0) fL MCH 30.7 (27.0-31.0) pg MCHC 33.2 (33.0-37.0) g/dL RDW 12.8 (11.5-14.5) % Plt Count 220 (130-400) K/uL MPV 9.4 (7.2-11.7) fL Neut % (Auto) 70.2 (50.0-75.0) % Lymph % (Auto) 20.5 (20.0-40.0) % [place] % (Auto) 7.3 (0.0-10.0) % Eos % (Auto) 0.9 (0.0-4.0) % Baso % (Auto) 1.1 (0.0-2.0) % Neut # (Auto) 7.4 H (1.8-7.0) K/uL Lymph # (Auto) 2.2 (1.0-4.3) K/uL [place] # (Auto) 0.8 (0.0-0.8) K/uL Eos # (Auto) 0.1 (0.0-0.7) K/uL Baso # (Auto) 0.1 (0.0-0.2) K/uL Sodium 134 (132-148) mmol/L Potassium 4.0 (3.6-5.2) mmol/L Chloride 101 (98-107) mmol/L Carbon Dioxide 25 (22-30) mmol/L Anion Gap 13 (10-20) BUN 21 H (9-20) mg/dL Creatinine 0.9 (0.8-1.5) mg/dL Est GFR ( Amer) > 60 Est GFR (Non-Af Amer) > 60 Random Glucose 107 (75-110) mg/dL Hemoglobin A1c 5.8 (4.2-6.5) % Calcium 9.1 (8.6-10.4) mg/dl Total Bilirubin 0.8 (0.2-1.3) mg/dL AST 98 H D (17-59) U/L ALT 43 (21-72) U/L Alkaline Phosphatase 75 (38-126) U/L Total Creatine Kinase 274 H (55-170) U/L CK-MB (Mass) 15.6 H (0.0-3.38) ng/mL Troponin I 12.4000 H* (0.00-0.120) ng/mL Total Protein 7.3 (6.3-8.3) g/dL Albumin 4.2 (3.5-5.0) g/dL Globulin 3.1 (2.2-3.9) gm/dL Albumin/Globulin Ratio 1.4 (1.0-2.1) Laboratory Results - last 24 hr 01/12/19 01/14/19 01/14/19 23:03 06:07 06:07 WBC 10.5 RBC 5.12 Hgb 15.7 Hct 47.3 MCV 92.3 MCH 30.7 MCHC 33.2 RDW 12.8 Plt Count 220 MPV 9.4 Neut % (Auto) 70.2 Lymph % (Auto) 20.5 [place] % (Auto) 7.3 Eos % (Auto) 0.9 Baso % (Auto) 1.1 Neut # (Auto) 7.4 H Lymph # (Auto) 2.2 [place] # (Auto) 0.8 Eos # (Auto) 0.1 Baso # (Auto) 0.1 Sodium 134 Potassium 4.0 Chloride 101 Carbon Dioxide 25 Anion Gap 13 BUN 21 H Creatinine 0.9 Est GFR ( Amer) > 60 Est GFR (Non-Af Amer) > 60 Random Glucose 107 Hemoglobin A1c 5.8 Calcium 9.1 Total Bilirubin 0.8 AST 98 H D ALT 43 Alkaline Phosphatase 75 Total Creatine Kinase 274 H CK-MB (Mass) 15.6 H Troponin I 12.4000 H* Total Protein 7.3 Albumin 4.2 Globulin 3.1 Albumin/Globulin Ratio 1.4 Radiology Impressions: Radiology Impressions Chest X-Ray 01/13/19 06:00 IMPRESSION: Mild pulmonary vascular congestion. EKG/Cardiology Studies: Cardiology / EKG Studies 01/14/19 07:00 ELECTROCARDIOGRAM DAILY Comment: Mode Of Transportation: Reason For Exam: s/p cardiac cath Review of Systems - Cardiovascular Cardiovascular: absent: Chest Pain, Diaphoresis, Dyspnea, Dyspnea on Exertion, Edema, Pain Radiating to Arm/Neck/Jaw - Respiratory Respiratory: absent: Cough, Dyspnea, Dyspnea on Exertion, Wheezing, Chest Congestion - Gastrointestinal Gastrointestinal: absent: Abdominal Pain, Constipation, Diarrhea, Nausea, Vomiting Critical Care Progress Note - Nutrition Nutrition: Nutrition Category Date Time Status Heart Healthy Diet [DIET] Diets 01/12/19 Dinner Active Assessment/Plan - Assessment and Plan (Free Text) Assessment: 53 y o male with PMhx HTN, with positive family hx of AL and heart disease, Code Heart transfer from [facility], who presented with acute inferior and ST elevation AL. S/p cardiac cath and RCA intervention with MOMO on 01/12/[address] Poole, pt doing well post-procedure. Pt may need LAD stent performed after 1 month post-procedure. Plan: Neuro: -AAOx3 currently -Cont to monitor Cardiac: -Tachycardic, cont to monitor and trend after receiving AM beta-serina dose -Troponin trend 17.9 => 48.2 => 12.4 -Acute inferior STEMI -S/p Cath and RCA intervention with MOMO performed by Dr. Poole on 01/12/19 L main: patent LAD/Diag: prox-mid 80-85% stenosis. Small D1 90%. L Cx: patent RCA: dominant. Large PDA 99% occluded. LV: EF 40%, inferior and apical hypokinesis, EDP 20 -Plan for possible PCI of LAD after 1 month -Integrillin drip d/c'd -C/w ASA, Losartan, Metoprolol tartrate, Rosuvastatin -C/w Brillinta 90 mg PO bid -Echo pending -Dr. Poole consulted (Cardio), recs appreciated Pulm: -Saturating well, cont to monitor -Encourage ambulation GI: -HHD -Protonix PO daily Endo: -Random glucose 107 today, cont to trend ID: -Afebrile, cont to monitor -No leukocytosis, WBC 10.5, cont to trend -Not on any antibiotic therapy currently Heme: -H/H 15.7/47.3, stable, cont to trend PPX: -GI ppx: Protonix -DVT ppx: Lovenox Dispo: To be downgraded from ICU to tele floor as per recs of Dr. Poole. Pt seen, examined with, and plan discussed with Dr. Gallardo, attending physician. Juma Damon DO PGY-1, [employer] Pager #[phone]
[2019-01-14] MEDS: Enoxaparin 40 mg Syringe SC SCH (09:41)
[2019-01-14] MEDS: Pantoprazole 40 mg EC Tab PO SCH (09:42)
--- NOTE | 2019-01-14 12:52 | CARD ---
APPROVED REPORT Date of service: 01/14/2019 EKG Measurement Heart [id number] <Conclusion> Normal sinus rhythm Left axis deviation Voltage criteria for left ventricular hypertrophy Inferior infarct, age undetermined Anterolateral infarct, age undetermined Prolonged QT Abnormal ECG
--- NOTE | 2019-01-14 12:53 | CARD ---
APPROVED REPORT Date of service: 01/13/2019 EKG Measurement Heart [id number] <Conclusion> Normal sinus rhythm Left axis deviation Voltage criteria for left ventricular hypertrophy Inferior infarct, age undetermined Anterolateral infarct, age undetermined Abnormal ECG
--- NOTE | 2019-01-14 15:19 | CP.PCM.PN ---
Subjective - Date & Time of Evaluation Date of Evaluation: 01/14/19 Time of Evaluation: 15:17 - Subjective Subjective: Patient is sitting up comfortably this morning had a mild tachycardia, but he is feeling no chest pain no shortness of breath. He is able to eat well without any problem. Having difficult time going to the bathroom, but otherwise he is asymptomatic On examination: Vital signs are stable. Chest good air entry, regular heart sounds noted, nontender abdomen, no pedal edema Labs reviewed Troponin elevated. Echocardiogram was done, awaiting results Assessment and recommendation: 53-year-old male with a history of hypertension, high cholesterol admitted to the hospital with a ST elevation CO status post a stent. Currently stable. Possible discharge plan tomorrow, patient may need further cardiac intervention as an outpatient. Currently patient is on beta-serina, arb, statin and antiplatelets. Objective - Vital Signs/Intake and Output Vital Signs (last 24 hours): Temp Pulse Resp BP Pulse Ox 98.4 F 102 H 21 120/67 98 01/14/19 12:00 01/14/19 12:21 01/14/19 12:21 01/14/19 12:21 01/14/19 12:21 Intake and Output: 01/14/19 01/14/19 06:59 18:59 Intake Total 100 640 Output Total 1200 Balance -1100 640 - Medications Medications: Current Medications Aspirin (Aspirin Chewable) 81 mg PO DAILY [facility] Last Admin: 01/14/19 09:39 Dose: 81 mg Docusate Sodium (Colace) 100 mg PO BID [facility] Last Admin: 01/14/19 09:39 Dose: 100 mg Enoxaparin Sodium (Lovenox) 40 mg SC DAILY [facility] Last Admin: 01/14/19 09:41 Dose: 40 mg Losartan Potassium (Cozaar) 25 mg PO DAILY [facility] Last Admin: 01/14/19 09:39 Dose: 25 mg Metoprolol Tartrate (Lopressor) 25 mg PO BID [facility] Last Admin: 01/14/19 09:41 Dose: Not Given Pantoprazole Sodium (Protonix Ec Tab) 40 mg PO DAILY [facility] Last Admin: 01/14/19 09:42 Dose: 40 mg Rosuvastatin Calcium (Crestor) 40 mg PO HS [facility] Last Admin: 01/13/19 21:23 Dose: 40 mg Ticagrelor (Brilinta) 90 mg PO BID [facility] Last Admin: 01/14/19 09:39 Dose: 90 mg - Labs Labs: 01/14/19 06:07 01/14/19 06:07
--- NOTE | 2019-01-14 16:48 | CARD ---
APPROVED REPORT Date of service: 01/14/2019 EXAM: Two-dimensional and M-mode echocardiogram with Doppler and color Doppler. Other Information Quality : GoodRhythm : INDICATION Chest Pain Status/Post UT Surgery/Intervention Status/Post Intervention: Stent RISK FACTORS Hypertension 2D DIMENSIONS IVSd1.1 (0.7-1.1cm)LVDd4.2 (3.9-5.9cm) PWd1.0 (0.7-1.1cm)LA Cammzm95 (18-58mL) LVDs2.9 (2.5-4.0cm)FS (%) 31.0 % LVEF (%)59.2 (>50%)LVEF (Oates's)61.35 % M-Mode DIMENSIONS Left Atrium (MM)2.92 (2.5-4.0cm)IVSd0.90 (0.7-1.1cm) Aortic Root3.63 (2.2-3.7cm)LVDd4.29 (4.0-5.6cm) Aortic Cusp Exc.2.37 (1.5-2.0cm)PWd0.93 (0.7-1.1cm) FS (%) 35 %LVDs2.80 (2.0-3.8cm) LVEF (%)64 (>50%) Mitral Valve MV E Npqdznou27.8cm/sMV A Waedmlpn03.2cm/sE/A ratio0.7 TDI Lateral E' Peak V8.61cm/sMedial E' Peak V3.57cm/sE/Lateral E'5.9 E/Medial E'14.2 LEFT VENTRICLE The left ventricle is normal size. There is normal left ventricular wall thickness. The left ventricular systolic function is normal. The left ventricular ejection fraction is within the normal range. There is mild to moderate hypokinesis in thel inferior wall. Transmitral Doppler flow pattern is Grade I-abnormal relaxation pattern. RIGHT VENTRICLE The right ventricle is normal size. The right ventricular systolic function is normal. ATRIA The left atrium size is normal. The right atrium size is normal. AORTIC VALVE The aortic valve is normal in structure. No aortic regurgitation is present. There is no aortic valvular stenosis. MITRAL VALVE The mitral valve is normal in structure. There is no mitral valve regurgitation noted. TRICUSPID VALVE The tricuspid valve is normal in structure. There is no tricuspid valve regurgitation noted. PULMONIC VALVE The pulmonary valve is normal in structure. There is mild pulmonic valvular regurgitation. GREAT VESSELS The aortic root is normal in size. The IVC is normal in size and collapses >50% with inspiration. PERICARDIAL EFFUSION There is no pericardial effusion. <Conclusion> The left ventricular systolic function is normal. There is mild to moderate hypokinesis in the inferior wall highly suggestive of coronary heart disease. Grade I diastolic dysfunction -abnormal relaxation pattern. The right ventricular systolic function is normal. No significant valvular abnormality. No pericardial effusion.
--- NOTE | 2019-01-14 23:42 | CP.PCM.PN ---
Subjective - Date & Time of Evaluation Date of Evaluation: 01/14/19 Time of Evaluation: 10:15 - Subjective Subjective: Patient seen and evaluated in ICU Ambulating without difficulty Review of Systems - Constitutional Constitutional: absent: Anorexia, Headache, Weakness - EENT Eyes: absent: Blurred Vision Ears: absent: Ear Pain, Dizziness Nose/Mouth/Throat: absent: Hoarsness, Sore Throat - Cardiovascular Cardiovascular: Other (c/o left sided soreness). absent: Dyspnea, Palpitations, Pedal Edema - Respiratory Respiratory: absent: Cough, Dyspnea, Hemoptysis - Gastrointestinal Gastrointestinal: absent: Abdominal Pain, Nausea, Vomiting - Genitourinary Genitourinary: absent: Dysuria - Endocrine Endocrine: absent: Fatigue - Hematologic/Lymphatic Hematologic: absent: Easy Bleeding Physical Exam - Constitutional Appears: Non-toxic, No Acute Distress - Head Exam Head Exam: ATRAUMATIC, NORMAL INSPECTION, NORMOCEPHALIC - Eye Exam Eye Exam: EOMI. absent: Scleral icterus Pupil Exam: NORMAL ACCOMODATION, PERRL - ENT Exam ENT Exam: Mucous Membranes Moist - Neck Exam Neck exam: Positive for: Normal Inspection - Respiratory Exam Respiratory Exam: Clear to Auscultation Bilateral. absent: Accessory Muscle Use - Cardiovascular Exam Cardiovascular Exam: REGULAR RHYTHM. absent: JVD - GI/Abdominal Exam GI & Abdominal Exam: Normal Bowel Sounds, Soft. absent: Tenderness - Extremities Exam Extremities exam: Positive for: normal inspection, pedal pulses present. Negative for: calf tenderness, pedal edema - Neurological Exam Neurological exam: Alert, Oriented x3 - Psychiatric Exam Psychiatric exam: Normal Affect - Skin Skin Exam: Normal Color, Warm Assessment & Plan - Assessment and Plan (Free Text) Assessment: Acute Inferior STEMI/HTN/ hyperlipidemia S/P cardiac cath and RCA intervention with MOMO performed HTN on B blockers Lovenox 40sc, ASA 81, Brilinta, Protonix 40 po daily Crestor 40QHS ECHO, EKG Cath: 1. L Main: Patent 2. LAD/Diag: Proximal to mid 80-85% stenosis. Small D1 90% 3. L Cx: Patent 4. RCA: Dominant. Large PDA 99% occluded 5. LV: EF 40%, Inferior and apical hypokinesis, EDP 20 Staged PCI of LAD after 1 month Objective - Vital Signs/Intake and Output Vital Signs (last 24 hours): Temp Pulse Resp BP Pulse Ox 98.4 F 88 23 108/77 96 01/14/19 20:00 01/14/19 22:36 01/14/19 20:00 01/14/19 20:00 01/14/19 20:00 Intake and Output: 01/14/19 01/15/19 18:59 06:59 Intake Total 640 Balance 640 - Medications Medications: Current Medications Aspirin (Aspirin Chewable) 81 mg PO DAILY [facility] Last Admin: 01/14/19 09:39 Dose: 81 mg Docusate Sodium (Colace) 100 mg PO BID [facility] Last Admin: 01/14/19 17:39 Dose: 100 mg Enoxaparin Sodium (Lovenox) 40 mg SC DAILY [facility] Last Admin: 01/14/19 09:41 Dose: 40 mg Losartan Potassium (Cozaar) 25 mg PO DAILY [facility] Last Admin: 01/14/19 09:39 Dose: 25 mg Metoprolol Tartrate (Lopressor) 25 mg PO BID [facility] Last Admin: 01/14/19 17:38 Dose: Not Given Pantoprazole Sodium (Protonix Ec Tab) 40 mg PO DAILY [facility] Last Admin: 01/14/19 09:42 Dose: 40 mg Rosuvastatin Calcium (Crestor) 40 mg PO HS [facility] Last Admin: 01/14/19 21:07 Dose: 40 mg Ticagrelor (Brilinta) 90 mg PO BID [facility] Last Admin: 01/14/19 17:39 Dose: 90 mg - Labs Labs: 01/14/19 06:07 01/14/19 06:07
[2019-01-15 06:17] LABS: BASO % 0.4 % (0.0-2.0); EOS # 0.2 K/uL (0.0-0.7); EOS % 1.6 % (0.0-4.0); HEMOGLOBIN 15.4 g/dL (12.0-18.0); LYMPH % 21.6 % (20.0-40.0); MEAN CELL VOLUME 92.2 fL (80.0-94.0); MEAN CORPUSCULAR HEMOGLOBIN 30.7 pg (27.0-31.0); MEAN CORPUSCULAR HGB CONC 33.2 g/dL (33.0-37.0); MEAN PLATELET VOLUME 9.6 fL (7.2-11.7); MONO # 0.8 K/uL (0.0-0.8); MONO % 8.3 % (0.0-10.0); NEUT # 6.4 K/uL (1.8-7.0); NEUT % 68.1 % (50.0-75.0); NRBC % 0.1 % (0.0-2.0); RBC 5.02 Mil/uL (4.40-5.90); RED CELL DISTRIBUTION WIDTH 12.8 % (11.5-14.5); WHITE BLOOD COUNT 9.4 K/uL (4.8-10.8)
[2019-01-15 06:37] LABS: ALB/GLOB RATIO 1.3 (1.0-2.1); ALBUMIN 4.2 g/dL (3.5-5.0); ALT/SGPT 62 U/L (21-72); AST/SGOT 81 U/L (17-59); BLOOD UREA NITROGEN 20 mg/dL (9-20); CALCIUM 9.2 mg/dl (8.6-10.4); GFR NON-AFRICAN AMERICAN > 60
[2019-01-15 08:47] VITALS: RESP 15
[2019-01-15] MEDS: Enoxaparin 40 mg Syringe SC SCH (09:03)
[2019-01-15] MEDS: Pantoprazole 40 mg EC Tab PO SCH (09:03)
[2019-01-15 14:30] VITALS: BP 120/78
--- NOTE | 2019-01-15 15:37 | CP.PCM.DIS ---
Provider - Provider Date of Admission: 01/12/19 19:52 Attending physician: Aleah Gallardo MD Consults: 01/12/19 21:23 Internal Medicine Consult Routine Comment: Consulting Provider: Aleah Gallardo Consulting Physician: Aleah Gallardo Reason for Consult: Internal medicine follow up Time Spent in preparation of Discharge (in minutes): 45 Hospital Course - Lab Results Lab Results: Micro Results 01/13/19 00:19 Nose MRSA Culture (Admit) - Final MRSA NOT DETECTED Most Recent Lab Values WBC 9.4 K/uL (4.8-10.8) 01/15/19 06:00 RBC 5.02 Mil/uL (4.40-5.90) 01/15/19 06:00 Hgb 15.4 g/dL (12.0-18.0) 01/15/19 06:00 Hct 46.3 % (35.0-51.0) 01/15/19 06:00 MCV 92.2 fL (80.0-94.0) 01/15/19 06:00 MCH 30.7 pg (27.0-31.0) 01/15/19 06:00 MCHC 33.2 g/dL (33.0-37.0) 01/15/19 06:00 RDW 12.8 % (11.5-14.5) 01/15/19 06:00 Plt Count 222 K/uL (130-400) 01/15/19 06:00 MPV 9.6 fL (7.2-11.7) 01/15/19 06:00 Neut % (Auto) 68.1 % (50.0-75.0) 01/15/19 06:00 Lymph % (Auto) 21.6 % (20.0-40.0) 01/15/19 06:00 Lawrence % (Auto) 8.3 % (0.0-10.0) 01/15/19 06:00 Eos % (Auto) 1.6 % (0.0-4.0) 01/15/19 06:00 Baso % (Auto) 0.4 % (0.0-2.0) 01/15/19 06:00 Neut # (Auto) 6.4 K/uL (1.8-7.0) 01/15/19 06:00 Lymph # (Auto) 2.0 K/uL (1.0-4.3) 01/15/19 06:00 Lawrence # (Auto) 0.8 K/uL (0.0-0.8) 01/15/19 06:00 Eos # (Auto) 0.2 K/uL (0.0-0.7) 01/15/19 06:00 Baso # (Auto) 0.0 K/uL (0.0-0.2) 01/15/19 06:00 Sodium 133 mmol/L (132-148) 01/15/19 06:00 Potassium 4.1 mmol/L (3.6-5.2) 01/15/19 06:00 Chloride 101 mmol/L (98-107) 01/15/19 06:00 Carbon Dioxide 25 mmol/L (22-30) 01/15/19 06:00 Anion Gap 12 (10-20) 01/15/19 06:00 BUN 20 mg/dL (9-20) 01/15/19 06:00 Creatinine 1.0 mg/dL (0.8-1.5) 01/15/19 06:00 Est GFR ( Amer) > 60 01/15/19 06:00 Est GFR (Non-Af Amer) > 60 01/15/19 06:00 Random Glucose 108 mg/dL (75-110) 01/15/19 06:00 Hemoglobin A1c 5.8 % (4.2-6.5) 01/12/19 23:03 Calcium 9.2 mg/dl (8.6-10.4) 01/15/19 06:00 Phosphorus 3.3 mg/dL (2.5-4.5) 01/14/19 06:07 Magnesium 1.9 mg/dL (1.6-2.3) 01/14/19 06:07 Total Bilirubin 0.5 mg/dL (0.2-1.3) 01/15/19 06:00 AST 81 U/L (17-59) H 01/15/19 06:00 ALT 62 U/L (21-72) 01/15/19 06:00 Alkaline Phosphatase 80 U/L (38-126) 01/15/19 06:00 Total Creatine Kinase 274 U/L (55-170) H 01/14/19 06:07 CK-MB (Mass) 15.6 ng/mL (0.0-3.38) H 01/14/19 06:07 Troponin I 12.4000 ng/mL (0.00-0.120) H* 01/14/19 06:07 Total Protein 7.4 g/dL (6.3-8.3) 01/15/19 06:00 Albumin 4.2 g/dL (3.5-5.0) 01/15/19 06:00 Globulin 3.2 gm/dL (2.2-3.9) 01/15/19 06:00 Albumin/Globulin Ratio 1.3 (1.0-2.1) 01/15/19 06:00 Triglycerides 89 mg/dL (0-149) 01/12/19 23:03 Cholesterol 183 mg/dL (0-199) 01/12/19 23:03 LDL Cholesterol Direct 124 mg/dL (0-129) 01/12/19 23:03 HDL Cholesterol 45 mg/dL (30-70) 01/12/19 23:03 - Hospital Course Hospital Course: Chief complaint: Chest pain HPI: 53-year-old male with a history of hypertension, history of [place] family history family history of heart disease transferred from [facility] with acute inferior and ST elevation SD. Patient was initially admitted in the [facility], but he started experiencing chest pressure and associated with nausea dizziness and fatigue, and there was an EKG changes. Code heart was called and, patient was transferred to [facility]. Patient underwent angiogram, and a stent placement to RCA noted to be Left main was patent LAD den diagonal 80% stenosis, small diagonal 190% a Circumflex patent LVEF 40% noted. Some achiness is noted. And the patient had a successful RCA and PDA intervention with a drug-eluting stent. Patient may need LAD stent after 1 month. Past medical history hypertension Allergies no known drug allergy Personal history: Patient is non-smoker socially drinks alcohol. Family history of heart disease noted. High cholesterol noted Review of systems: Currently patient is feeling well, no chest pain no shortness of breath noted. Denies any nausea no vomiting noted. On examination: Vital signs are stable. Chest good air entry Heart sounds are regular Nontender abdomen. Patient is currently receiving Integrilin drip. Other medications including aspirin, Plavix, Lovenox, losartan, metoprolol, Crestor Assessment and recommendation: 53-year-old male with a history of hypertension and high cholesterol now admitted with ST elevation SD, status post stent. Patient will continue current treatment. Medications reviewed Evaluation by the cardiology follow-up. Echocardiogram Out of bed to chair and will follow up the patient Course in the hospital: Patient closely monitored in the intensive care unit. Patient is clinically stable over the next at today's. He was tolerating the losartan, metoprolol. Patient does not have any chest pain or shortness of breath. Able to walk. With the any difficulty patient was moving around. Clinically he stable. Seen by senior director creative services. Urine. But the cardiology for discharge home. Patient will be discharged home today, he will follow up as an outpatient. He'll followup with the senior director creative services in 2 weeks, at that time patient might need further investigation and management for the remaining obstruction of the LAD and a coronary artery disease. Final diagnosis: Acute elevation SD. Status post a stent to RCA and PDA. High cholesterol and hypertension. Stable now. Medications reviewed. Discharge Exam - Head Exam Head Exam: ATRAUMATIC Discharge Plan - Discharge Medications Prescriptions: Aspirin [Aspirin Chewable] 81 mg PO DAILY #30 chew Ticagrelor [Brilinta] 90 mg PO BID #60 tab Losartan [Cozaar] 25 mg PO DAILY #30 tab Rosuvastatin Calcium [Crestor] 40 mg PO HS #30 tab Metoprolol Tartrate [Lopressor] 25 mg PO BID #60 tab - Follow Up Plan Condition: SERIOUS Disposition: HOME/ ROUTINE Instructions: Heart Healthy Diet, Heart Attack (DC), Chest Pain (DC), Medicines After a Heart Attack, Going Home on Blood Thinners
[2019-01-15 16:43] VITALS: PULSE 91; TEMP 97.7; O2SAT 96
--- NOTE | 2019-01-15 21:17 | CARD ---
APPROVED REPORT Date of service: 01/12/2019 EKG Measurement Heart [id number] <Conclusion> Normal sinus rhythm Left axis deviation Voltage criteria for left ventricular hypertrophy Inferior infarct, age undetermined Anterolateral infarct, age undetermined Abnormal ECG
--- NOTE | 2019-01-16 00:17 | CP.PCM.PN ---
Subjective - Date & Time of Evaluation Date of Evaluation: 01/15/19 Time of Evaluation: 15:25 - Subjective Subjective: Hospital Course: Chief complaint: Chest pain HPI: 53-year-old male with a history of hypertension, history of [place] family history family history of heart disease transferred from [facility] with acute inf erior and ST elevation IA. Patient was initially admitted in the [facility], but he started ex periencing chest pressure and associated with nausea dizziness and fatigue, and there was an EKG changes. [facility] heart was called and, patient was transferred to [facility]. Patient underwent angiogram, and a stent placement to RCA noted to be Left main was patent LAD den diagonal 80% stenosis, small diagonal 190% a Circumflex patent LVEF 40% noted. Some achiness is noted. And the patient had a successful RCA and PDA intervention with a drug-eluting stent. Patient may need LAD stent after 1 month. Past medical history hypertension Allergies no known drug allergy Personal history: Patient is non-smoker socially drinks alcohol. Family history of heart disease noted. High cholesterol noted Review of systems: Currently patient is feeling well, no chest pain no shortness of breath noted. Denies any nausea no vomiting noted. On examination: Vital signs are stable. Chest good air entry Heart sounds are regular Nontender abdomen. Patient is currently receiving Integrilin drip. Other medications including aspirin, Plavix, Lovenox, losartan, metoprolol, Crestor Assessment and recommendation: 53-year-old male with a history of hypertension and high cholesterol now admitted with ST elevation IA, status post stent. Patient will continue current treatment. Medications reviewed Evaluation by the cardiology follow-up. Echocardiogram Out of bed to chair and will follow up the patient Course in the hospital: Patient closely monitored in the intensive care unit. Patient is clinically stable over the next at today's. He was tolerating the losartan, metoprolol. Patient does not have any chest pain or shortness of breath. Able to walk. With the any difficulty patient was moving around. Clinically he stable. Seen by manager meat. Urine. But the cardiology for discharge home. Patient will be discharged home today, he will follow up as an outpatient. He'll followup with the manager meat in 2 weeks, at that time patient might need further investigation and management for the remaining obstruction of the LAD and a coronary artery disease. Final diagnosis: Acute elevation IA. Status post a stent to RCA and PDA. High cholesterol and hypertension. Stable now. Medications reviewed. Discharge Exam - Head Exam Head Exam: ATRAUMATIC Discharge Plan - Discharge Medications Prescriptions: Aspirin [Aspirin Chewable] 81 mg PO DAILY #30 chew Ticagrelor [Brilinta] 90 mg PO BID #60 tab Losartan [Cozaar] 25 mg PO DAILY #30 tab Rosuvastatin Calcium [Crestor] 40 mg PO HS #30 tab Metoprolol Tartrate [Lopressor] 25 mg PO BID #60 tab - Follow Up Plan Condition: SERIOUS Disposition: HOME/ ROUTINE Instructions: Heart Healthy Diet, Heart Attack (DC), Chest Pain (DC), Medicines After a Heart Attack, Going Home on Blood Thinners Objective - Vital Signs/Intake and Output Vital Signs (last 24 hours): Temp Pulse Resp BP Pulse Ox 97.7 F 91 H 15 120/78 96 01/15/19 16:00 01/15/19 16:00 01/15/19 16:00 01/15/19 12:00 01/15/19 16:00 Intake and Output: 01/15/19 01/16/19 18:59 06:59 Intake Total 300 Output Total 500 Balance -200 - Labs Labs: 01/15/19 06:00 01/15/19 06:00
== END 2019-01-15 17:33 | disposition home or self-care (01) | DRG 247 ==
LOC: C.ER 19:32 → C.9I 19:52
PROVIDERS: ADMIT Internal Medicine; ATTEND Internal Medicine
PROC: 027034Z Dilation of Coronary Artery, One Artery with Drug-eluting Intraluminal Device, Percutaneous Approach (ICD-10-PCS; principal; 2019-01-12)
PROC: 4A023N7 Measurement of Cardiac Sampling and Pressure, Left Heart, Percutaneous Approach (ICD-10-PCS; 2019-01-12)
PROC: B2111ZZ Fluoroscopy of Multiple Coronary Arteries using Low Osmolar Contrast (ICD-10-PCS; 2019-01-12)
DX: I21.19 ST elevation (STEMI) myocardial infarction involving other coronary artery of inferior wall (principal); I10 Essential (primary) hypertension; E78.5 Hyperlipidemia, unspecified